=== PATIENT | male | born 1965 | race Caucasian/White ===

== ENCOUNTER 2018-01-11 11:57 | Day surgery (SDC) | payer BC ==
[2018-01-07 12:10] VITALS: BMI 24.4
[~2018-01-11 11:57] MED LIST: LACTATED RINGERS 1,000 ML IV SCH
[2018-01-11 12:50] VITALS: RESP 16; TEMP 97
[2018-01-11] MEDS ORDERED: LIDOCAINE 1% 20 ML VIAL (10MG/ML) FOR IV START INTRADERMA ONE (13:03)
[2018-01-11] MEDS ORDERED: LIDOCAINE 1% INJ 10MG/ML (20 ML MDV) ONE (13:46)
[2018-01-11] MEDS ORDERED: PROPOFOL 10 MG/ML 20 ML VIAL IV ONE (13:46)
--- NOTE | 2018-01-11 14:14 | P.PCN ---
Date of Procedure: 01/11/18 Procedure(s) Performed: Procedure: Total colonoscopy. Preoperative diagnosis: Screening for neoplasia. Postoperative diagnosis: Exam within normal limits. Preparation: HalfLytely prep. Sedation: Was provided by anesthesia. Brief clinical history: The patient is a 52-year-old male who is referred for this evaluation for screening for neoplasia age being his risk factor. No family history of colon cancer. He has no abdominal complaints, bleeding or anemia. This would be his first colonoscopy. Procedure: With the patient on his left lateral decubitus position and after informed consent and adequate sedation, the perianal area was inspected and it did not show any fissures or fistulas. There were no masses felt on digital rectal examination. The Olympus CFQ 160L video colonoscope was then inserted in the rectum in the usual fashion and advanced to the cecum. The mucosa appeared healthy. No polyps or tumors were seen or any obvious diverticular disease or other pathology. I retroflexed the endoscope in the rectum before the endoscope was withdrawn. The patient tolerated the procedure well. Plan: The patient was reassured. He will follow-up with you as planned and I recommended repeat exam in 10 years.
[2018-01-11 14:44] VITALS: BP 143/95; PULSE 61
== END 2018-01-11 14:52 | disposition home or self-care (01) ==
LOC: ORWHC2ENDO 11:57
DX: Z12.11 Encounter for screening for malignant neoplasm of colon (principal); I10 Essential (primary) hypertension; Z79.899 Other long term (current) drug therapy
CPT/HCPCS: J2001; J2704; G0121

== ENCOUNTER 2020-11-24 23:00 | Emergency (ER) | payer BC ==
[2020-11-24 23:05] VITALS: BP 143/88; PULSE 78; RESP 16; TEMP 98.3
--- NOTE | 2020-11-24 23:31 | ED ---
Skin/Abscess/FB HPI - General Chief complaint: Skin/Abscess/Foreign Body Stated complaint: poison brandie Time Seen by Provider: 11/24/20 23:07 Source: patient Mode of arrival: ambulatory Limitations: no limitations - History of Present Illness Initial comments: 55 year-old male patient presents for increased redness and pain to the arms. Patient states he developed a rash after exposure to poison brandie two weeks ago. States symptoms seemed to be improving then this morning noticed increased redness and swelling to the upper arms. Denies any fever or chills. Has been applying topical cream and taking benadryl for symptoms. Denies history of diabetes. Denies any other symptoms or concerns. - Related Data Home Medications Medication Instructions Recorded Confirmed Fexofenadine HCl [Staci Allergy] 180 mg PO DAILY PRN 01/07/18 01/11/18 Lisinopril-Hctz 10-12.5 mg 1 tab PO DAILY 01/07/18 01/11/18 [Zestoretic 10-12.5] Previous Rx's Medication Instructions Recorded Cephalexin [Keflex] 500 mg PO Q6H #40 cap 11/24/20 predniSONE 50 mg PO DAILY #5 tablet 11/24/20 Allergies Allergy/AdvReac Type Severity Reaction Status Date / Time No Known Allergies Allergy Verified 11/24/20 23:01 Review of Systems ROS Statement: Those systems with pertinent positive or pertinent negative responses have been documented in the HPI. ROS Other: All systems not noted in ROS Statement are negative. Past Medical History Past Medical History: Hypertension History of Any Multi-Drug Resistant Organisms: None Reported Past Surgical History: Hernia Repair Past Anesthesia/Blood Transfusion Reactions: No Reported Reaction Past Psychological History: No Psychological Hx Reported Smoking Status: Never smoker Past Alcohol Use History: Rare Past Drug Use History: None Reported - Past Family History Mother Family Medical History: Cancer Additional Family Medical History / Comment(s): pancreatic cancer- General Exam Limitations: no limitations General appearance: alert, in no apparent distress, other (Physical well- developed, well-nourished adult male patient in no acute distress. Vital signs upon presentation are temperature 98.3F, pulse 78, respirations 16, blood pressure 143/88, pulse ox 97% on room air.) Eye exam: Present: normal appearance, PERRL, EOMI. Absent: scleral icterus, conjunctival injection, periorbital swelling ENT exam: Present: normal exam, normal oropharynx, mucous membranes moist Respiratory exam: Present: normal lung sounds bilaterally. Absent: respiratory distress, wheezes, rales, rhonchi, stridor Cardiovascular Exam: Present: regular rate, normal rhythm, normal heart sounds. Absent: systolic murmur, diastolic murmur, rubs, gallop, clicks Extremities exam: Present: full ROM, normal capillary refill, other (There is crusting lesions noted over the volar aspect of the forearm and the upper arms. Lesions over her bilateral upper arms to have surrounding erythema and swelling. No drainage from the lesions. Radial pulses 2+.). Absent: tenderness, pedal edema, joint swelling, calf tenderness Neurological exam: Present: alert, oriented X3, CN II-XII intact Psychiatric exam: Present: normal affect, normal mood Skin exam: Present: warm, dry, intact, normal color. Absent: rash Course Vital Signs 11/24/20 23:01 Temperature 98.3 F Pulse Rate 78 Respiratory 16 Rate Blood Pressure 143/88 O2 Sat by Pulse 97 Oximetry Medical Decision Making - Medical Decision Making 55-year-old male patient presents to the emergency department today for evaluation of possible infection. Does have increased redness and swelling surrounding the lesions from dermatitis from poison brandie. He is afebrile normal vital signs. He'll be given a prescription for Keflex. Prescription for prednisone. Instructed to follow up with his primary care physician for recheck in 1-2 days. Return parameters discussed in detail. He verbalizes understanding and agrees with this plan. My attending is Dr. Hoyos. Disposition Clinical Impression: Poison brandie dermatitis, Cellulitis Disposition: HOME SELF-CARE Condition: Good Instructions (If sedation given, give patient instructions): Cellulitis (ED), Poison Brandie (ED) Additional Instructions: Complete antibiotic and steroid prescription in full. Follow-up with her primary care physician for recheck in 1-2 days. Return for any new, worsening, or concerning symptoms. Prescriptions: Cephalexin [Keflex] 500 mg PO Q6H #40 cap predniSONE 50 mg PO DAILY #5 tablet Is patient prescribed a controlled substance at d/c from ED?: No Referrals: Mukesh Navarro MD [Primary Care Provider] - 1-2 days Time of Disposition: 23:30
[2020-11-24] MEDS: CEPHALEXIN 500MG STARTER PACK 4 CAP BTL PO STA (23:38)
[2020-11-24] MEDS: predniSONE 50 MG TAB PO STA (23:39)
== END 2020-11-24 23:42 | disposition home or self-care (01) ==
LOC: EC 23:00 → SUPCPDRO 23:00 → EC 23:42
DX: L03.114 Cellulitis of left upper limb (principal); L03.113 Cellulitis of right upper limb; L23.7 Allergic contact dermatitis due to plants, except food; I10 Essential (primary) hypertension
CPT/HCPCS: 99283; J7512

== ENCOUNTER → 2023-07-02 | Outpatient (CLI) | payer BC ==
--- NOTE | 2023-07-02 09:25 | CT ---
EXAMINATION TYPE: CT abdomen pelvis w con CT DLP: 693.10 mGycm, Automated exposure control for dose reduction was used. DATE OF EXAM: 07/02/2023 9:21 AM COMPARISON: CT abdomen pelvis most recent from 05/01/2023 CLINICAL INDICATION:Male, 57 years old with history of K57.32 DIVERTICULITIS LARGE INTESTINE; f/u div erticulitis TECHNIQUE: Axial CT abdomen pelvis w con;Sagittal and coronal reformats were created on a separate w orkstation. Contrast used:100 mL of Isovue 300 with IV Contrast, (none if empty) Oral contrast used: with Oral Contrast (none if empty) FINDINGS: LOWER CHEST: Unremarkable ABDOMEN LIVER: Unremarkable GALLBLADDER AND BILE DUCTS: Unremarkable. PANCREAS: Unremarkable. SPLEEN: Small splenule is present. ADRENAL GLANDS: Unremarkable. KIDNEYS AND URETERS: No evidence of hydronephrosis or renal calculus. The ureters are unremarkable. PELVIS BLADDER: Unremarkable REPRODUCTIVE: Unremarkable. ABDOMEN & PELVIS STOMACH AND BOWEL: No evidence of bowel obstruction. Few scattered colonic diverticula. No evidence f or inflammation on today's exam. The appendix is normal. PERITONEUM/RETROPERITONEUM: No evidence of pneumoperitoneum or free fluid. VASCULATURE: No evidence of aortic aneurysm. MUSCULOSKELETAL: No acute osseous abnormalities LYMPH NODES: No gross evidence for lymphadenopathy. SOFT TISSUE/ABDOMINAL WALL: Unremarkable IMPRESSION: No evidence for acute process. Resolution of prior evidence of diverticulitis. No organizing fluid co llections.
== END | disposition home or self-care (01) ==
LOC: RADCTMAIN 07:30
PROVIDERS: ATTEND Family Medicine
DX: K57.32 Diverticulitis of large intestine without perforation or abscess without bleeding (principal)
CPT/HCPCS: 74177; Q9967